=== PATIENT | female | born 1990 | race Caucasian/White ===

== ENCOUNTER 2021-07-19 09:31 | Outpatient (CLI) | payer MEDICAID | END 2021-07-19 09:32 | disposition home or self-care (01) | LOC: BICMAMMO 09:31 | PROVIDERS: ATTEND Family Medicine | DX: N63.12 Unspecified lump in the right breast, upper inner quadrant (principal) | CPT/HCPCS: 77066; G0279 ==

== ENCOUNTER 2022-07-26 13:41 | Outpatient (CLI) | payer OTHER | END 2022-07-26 13:42 | disposition home or self-care (01) | LOC: BICMAMMO 13:41 | PROVIDERS: ATTEND Nurse Practitioner Family | DX: D24.1 Benign neoplasm of right breast (principal); N60.19 Diffuse cystic mastopathy of unspecified breast | CPT/HCPCS: 77066; G0279 ==